=== PATIENT | female | born 1990 | race Two or more races ===

== ENCOUNTER 2023-11-26 19:20 | Inpatient (IN) | payer OTHER ==
[~2023-11-26] VITALS: Ht 167.6 cm; Wt 72.2 kg
[2023-11-26] MEDS ORDERED: SODIUM CHLORIDE 0.9% 100 ML ONE (19:34)
[2023-11-26] MEDS ORDERED: IOHEXOL 350 MG/ML 100 ML VIAL ONE (19:34)
[2023-11-26] MEDS ORDERED: 0.9% SODIUM CHLORIDE 10 ML SYRINGE IVP ONE (19:34)
[2023-11-26 19:44] LABS: BASOPHILS % (AUTO) 0.7 % (0.0-2.0); EOSINOPHILS % (AUTO) 1.8 % (1.0-6.0); HEMATOCRIT 45.3 % (36-46); HEMOGLOBIN 15.3 g/dL (12.0-16.0); LYMPHOCYTES # (AUTO) 2.7 K/uL (1.0-4.8); LYMPHOCYTES % (AUTO) 36.8 % (22.0-44.0); MEAN CORPUSCULAR HEMOGLOBIN 29.9 pg (26.0-34.0); MEAN CORPUSCULAR HGB CONC 33.7 G/dL (31.0-37.0); MEAN CORPUSCULAR VOLUME 89 fL (80-100); MONOCYTES # (AUTO) 0.5 K/uL (0.1-1.0); MONOCYTES % (AUTO) 6.3 % (2.0-9.0); NEUTROPHILS % (AUTO) 54.4 % (40.0-70.0); PLATELET COUNT (AUTO) 268 K/uL (150-450); RED CELL DISTRIBUTION WIDTH 13.5 % (11.5-14.5); WHITE BLOOD COUNT (AUTO) 7.4 K/uL (4.5-11.0)
[2023-11-26 19:54] LABS: ANION GAP 8 mmol/L (8-16); CALCIUM, TOTAL 10.2 mg/dL (8.8-10.5); CARBON DIOXIDE 26 mmol/L (22-29); CHLORIDE 103 mmol/L (98-107); CREATININE 0.71 mg/dL (0.60-1.30); GLOMERULAR FILTR. RATE CALC > 60 mL/min (>60); GLUCOSE,RANDOM 130 mg/dL (70-110); POTASSIUM 3.4 mmol/L (3.5-5.1); SODIUM SERUM 137 mmol/L (136-145); UREA NITROGEN, BLOOD 12 mg/dL (7-18)
[2023-11-26 20:03] LABS: APPEARANCE,URINE CLEAR (CLEAR); BILIRUBIN,URINE NEGATIVE (NEGATIVE); COLOR,URINE COLORLESS (YELLOW); GLUCOSE, URINE (UA) NEGATIVE (NEGATIVE); KETONES,URINE NEGATIVE (NEGATIVE); LEUKOCYTE ESTERASE ,URINE NEGATIVE (NEGATIVE); NITRATE,URINE NEGATIVE (NEGATIVE); OCCULT BLOOD,URINE NEGATIVE (NEGATIVE); PROTEIN,URINE NEGATIVE (NEGATIVE); SPECIFIC GRAVITIY, URINE 1.013 (1.003-1.030); UROBILINOGEN,URINE <=1.0 mg/dL (<=1.0)
[2023-11-26 20:03] LABS: TROPONIN I-HIGH SENSITIVITY Less Than 4 ng/L (<51)
[2023-11-26 20:05] LABS: ALANINE AMINOTRANSFERASE 24 U/L (12-78); ALKALINE PHOSPHATASE 55 U/L (46-116); ASPARTATE AMINOTRANSFERASE 19 U/L (15-37); BILIRUBIN,TOTAL 0.4 mg/dL (0.1-1.0); HCG,QUANTITATIVE < 1 mIU/mL (0-6); TOTAL PROTEIN, SERUM 8.6 g/dL (6.4-8.2)
[2023-11-26 20:10] LABS: BACTERIA,URINE None Seen /HPF (None Seen); RBC,URINE 0-2 /HPF (0-2); SQUAMOUS EPITHELIAL CELL,UR Few /LPF (None Seen); WBC,URINE 0-2 /HPF (0-5)
[2023-11-26 20:12] LABS: AMPHET/METH SCREEN,URINE NEGATIVE (NEGATIVE); BARBITURATE SCREEN, URINE NEGATIVE (NEGATIVE); BENZODIAZEPINES SCREEN,URINE NEGATIVE (NEGATIVE); CANNABINOID SCREEN,URINE NEGATIVE (NEGATIVE); COCAINE SCREEN,URINE NEGATIVE (NEGATIVE); METHADONE SCREEN, URINE NEGATIVE (NEGATIVE); OPIATE SCREEN,URINE NEGATIVE (NEGATIVE); PHENCYCLIDINE SCREEN,URINE NEGATIVE (NEGATIVE)
[2023-11-26 20:13] LABS: ALCOHOL, URINE DRUG SCREEN NEGATIVE (NEGATIVE)
[2023-11-26 20:24] LABS: PROTHROMBIN TIME 10.2 SEC (9.4-11.6)
[2023-11-26] MEDS: CLOPIDOGREL BISULFATE 75 MG TABLET PO ONE ×2 (20:55→22:22)
[2023-11-26] MEDS: ASPIRIN 81 MG CHEWABLE TABLET PO ONE (20:58)
[2023-11-26] MEDS ORDERED: ZOLPIDEM TARTRATE 5 MG TABLET PO PRN (21:00)
[2023-11-26] MEDS ORDERED: ONDANSETRON HCL 4 MG/2 ML VIAL IVP PRN (21:00)
[2023-11-26] MEDS ORDERED: HYDROCODONE/ACETAMINOPHEN 5-325 MG TABLET PO PRN (21:00)
[2023-11-26] MEDS ORDERED: IPRATROPIUM BROMIDE 0.5 MG/2.5 ML NEB SOLUTION NEB PRN (21:00)
[2023-11-26] MEDS ORDERED: ALBUTEROL SULFATE 2.5 MG/0.5 ML NEB SOLUTION NEB PRN (21:00)
[2023-11-26] MEDS ORDERED: MORPHINE SULFATE 2 MG/ML SYRINGE IVP PRN (21:00)
[2023-11-26] MEDS ORDERED: BISACODYL 10 MG RECTAL RECTAL SUPPOSITORY PR PRN (21:00)
[2023-11-26] MEDS ORDERED: MAGNESIUM HYDROXIDE SUSPENSION 30 ML UDCUP PO PRN (21:00)
[2023-11-26] MEDS ORDERED: NIFE-40 PO (21:16)
[2023-11-26] MEDS ORDERED: LEVE750T10 PO (21:16)
[2023-11-26] MEDS ORDERED: GABA-1181 PO (21:16)
[2023-11-26] MEDS ORDERED: MAGNESIUM SULFATE 4 GM/WATER 100 ML IV PRN (21:45)
[2023-11-26] MEDS ORDERED: MAGNESIUM OXIDE 400 MG TABLET PO PRN (21:45)
[2023-11-26] MEDS ORDERED: POTASSIUM CHL 10 MEQ/WATER 50 ML IV PRN (21:45)
[2023-11-26] MEDS ORDERED: MAGNESIUM SULFATE 2 GM/WATER 50 ML IV PRN (21:45)
[2023-11-26] MEDS: POTASSIUM CHLORIDE 20 MEQ ER TABLET PO PRN (22:53)
[2023-11-26 23:05] VITALS: BP 119/72; PULSE 71; RESP 16; TEMP 97.9; O2SAT 98
[2023-11-27] MEDS: HEPARIN SODIUM,PORCINE 5,000 UNITS/ML VIAL SQ SCH
[2023-11-27 01:15] LABS: TROPONIN I-HIGH SENSITIVITY 6 ng/L (<51)
[2023-11-27 04:52] VITALS: BP 106/71; PULSE 76; RESP 17; TEMP 97.9; O2SAT 96
[2023-11-27 07:15] LABS: ANION GAP 3 mmol/L (8-16); CALCIUM, TOTAL 9.3 mg/dL (8.8-10.5); CARBON DIOXIDE 25 mmol/L (22-29); CHLORIDE 108 mmol/L (98-107); CREATININE 0.58 mg/dL (0.60-1.30); GLOMERULAR FILTR. RATE CALC > 60 mL/min (>60); GLUCOSE,RANDOM 96 mg/dL (70-110); POTASSIUM 4.1 mmol/L (3.5-5.1); SODIUM SERUM 136 mmol/L (136-145); UREA NITROGEN, BLOOD 10 mg/dL (7-18)
[2023-11-27 07:20] LABS: BASOPHILS % (AUTO) 0.8 % (0.0-2.0); EOSINOPHILS % (AUTO) 2.9 % (1.0-6.0); HEMATOCRIT 43.2 % (36-46); HEMOGLOBIN 14.4 g/dL (12.0-16.0); LYMPHOCYTES # (AUTO) 2.3 K/uL (1.0-4.8); LYMPHOCYTES % (AUTO) 36.3 % (22.0-44.0); MEAN CORPUSCULAR HEMOGLOBIN 29.9 pg (26.0-34.0); MEAN CORPUSCULAR HGB CONC 33.3 G/dL (31.0-37.0); MEAN CORPUSCULAR VOLUME 90 fL (80-100); MONOCYTES # (AUTO) 0.6 K/uL (0.1-1.0); MONOCYTES % (AUTO) 8.9 % (2.0-9.0); NEUTROPHILS # (AUTO) 3.3 K/uL (1.8-7.7); NEUTROPHILS % (AUTO) 51.1 % (40.0-70.0); PLATELET COUNT (AUTO) 236 K/uL (150-450); RED BLOOD CELL COUNT(AUTO) 4.82 MIL/uL (4.00-5.20); RED CELL DISTRIBUTION WIDTH 13.7 % (11.5-14.5); WHITE BLOOD COUNT (AUTO) 6.5 K/uL (4.5-11.0)
[2023-11-27 08:19] LABS: TROPONIN I-HIGH SENSITIVITY Less Than 4 ng/L (<51)
[2023-11-27] MEDS: PANTOPRAZOLE SODIUM 40 MG DR TABLET PO SCH (08:40)
[2023-11-27] MEDS: ASPIRIN 81 MG CHEWABLE TABLET PO SCH (08:40)
[2023-11-27] MEDS: GABAPENTIN 300 MG CAPSULE PO SCH (08:40)
[2023-11-27] MEDS: NIFEdipine 30 MG ER TABLET PO SCH (08:46)
[2023-11-27 08:47] VITALS: BP 106/65; PULSE 78; RESP 18; TEMP 97.9; O2SAT 99
[2023-11-27] MEDS: LevETIRAcetam 250 MG TABLET PO SCH (09:46)
[2023-11-27 11:29] VITALS: BP 121/66; PULSE 87; RESP 18; TEMP 98.3; O2SAT 99
[2023-11-27] MEDS ORDERED: LORazepam 2 MG/ML VIAL IVP PRN (14:00)
[2023-11-27] MEDS: LORazepam 2 MG/ML VIAL IVP ONE (14:37)
[2023-11-27 17:47] VITALS: PULSE 97; RESP 18
[2023-11-27 20:18] VITALS: BP 103/70; PULSE 81; RESP 18; TEMP 98.1; O2SAT 99
[2023-11-27] MEDS: CLOPIDOGREL BISULFATE 75 MG TABLET PO SCH (21:28)
[2023-11-28 00:17] VITALS: BP 101/69; PULSE 73; RESP 17; TEMP 97.7; O2SAT 99
[2023-11-28 04:46] VITALS: BP 101/54; PULSE 77; RESP 18; TEMP 97.8; O2SAT 99
[2023-11-28 08:00] VITALS: BP 103/52; PULSE 70; RESP 16; TEMP 97.9; O2SAT 98
[2023-11-28] MEDS: ACETAMINOPHEN 325 MG TABLET PO PRN (10:44)
[2023-11-28] MEDS: PREGABALIN 50 MG CAPSULE PO SCH (11:26)
[2023-11-28 12:00] VITALS: BP 114/68; PULSE 69; RESP 17; TEMP 98.1; O2SAT 99
[2023-11-28 16:00] VITALS: BP 114/69; PULSE 66; RESP 16; TEMP 98.3; O2SAT 100
[2023-11-28] MEDS ORDERED: LevETIRAcetam 500 MG TABLET PO SCH (21:00)
== END 2023-11-28 19:41 | disposition short-term general hospital (02) | DRG 101 ==
LOC: EMS 19:20 → EDH 21:04 → 5S 23:05
PROVIDERS: ADMIT Hospitalist; ATTEND Hospitalist
DX: G40.909 Epilepsy, unspecified, not intractable, without status epilepticus (principal); E87.6 Hypokalemia; I10 Essential (primary) hypertension; I69.898 Other sequelae of other cerebrovascular disease; Z79.899 Other long term (current) drug therapy
CPT/HCPCS: 70496; 70498; 70551; 71045; 80048; 80053; 80307; 81001; 82040; 82948; 83735; 84484; 84702; 85025; 85610; 85730; 92526; 92610; 93005; 95816; 97163; 97167; 97535; 99285; G0378; J1644; J2060; J7050; 36415-L1; 36415-TC; 70450; 70450-TC